=== PATIENT | male | born 1940 | race Caucasian/White ===

== ENCOUNTER 2018-06-02 08:56 | Day surgery (SDC) | payer MEDICARE, OTHER, SELFPAY ==
[2018-06-02 09:29] VITALS: BP 143/70; PULSE 56; RESP 18; TEMP 36.7; O2SAT 96; BMI 34.2
[2018-06-02 09:40] LABS: Bedside Glucose 88 mg/dL (70-110)
--- NOTE | 2018-06-02 10:18 | PCM.OPRPT ---
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 z86.010 personal history of colonic polyps Post-Operative Diagnosis: Same Surgery/Procedure Performed:: 1. Esophagogastroduodenoscopy with biopsy. 2. Colonoscopy with snare polypectomy ?2 Type of Anesthesia:: MAC Description of Procedure: Patient was brought into the endoscopy suite. Placed in the supine position. Back of his throat was sprayed with Cetacaine spray. Bite-block was placed. He was placed in the left lateral decubitus position. Graded anesthesia was given Olympus scope was inserted in the back of the oropharynx and directed down through the esophagus into the stomach and into the duodenum without difficulty operative findings: 1. Duodenum: Normal appearance no mass lesions. 2. Stomach: Some linear gastritis was identified in the prepyloric area the pylorus itself was patent and no signs of mass lesions and no signs of ulcerations. Retroflexion did not show any signs of a hiatal hernia. No polyps were identified in the stomach. 3. Esophagus: There was a small area of the distal esophagus at the ZE line that looked like healing Brooks's esophagitis I did biopsies of this ?2. The rest of the distal esophagus all look normal and was widely patent. Colonoscope was inserted into the rectum. It was directed through the rectum, sigmoid colon, descending colon, transverse colon, ascending colon, to the cecum without difficulty operative findings: 1. Cecum: Normal appearance no mass lesions normal ileocecal valve. 2. Ascending colon: Normal in appearance. There were 2 small polyps which were removed with snare cautery technique and brought back through the channel of the scope without difficulty 3. Transverse colon: Normal appearance no mass lesions 4. Descending colon: Normal in appearance no mass lesions. 5. Sigmoid colon: Normal appearance no mass lesions. Multiple colonic diverticuli were identified. His bowel prep was rather poor through this area 6. Rectum: Normal appearance no mass lesions retroflexion did show some internal hemorrhoids. Rectal exam revealed no masses within the anus. Patient will need another colonoscopy in 10 years - Admit VTE Documentation VTE Present on Admission: No VTE Mechan Device Prophylaxis: None VTE Pharm Prophylaxis ordered?: No Reason prophylaxis not ordered:: Treatment Not Indicated
--- NOTE | 2018-06-02 10:30 | EGD_PTH ---
PATIENT: GHAZAL BOSS LOC: EN U#:[id number] AGE/SX: 77/M ROOM: RE06/02/[address]: Dr. Jesus Jones MD : 1940 BED: DIS: 06/02/2018 SPEC #: [id number] RECD: 06/02/18 13:28 STATUS: SANIYA CARMELITA #: [id number] JORDANA: 06/02/18 10:[address]: Jesus Jones DEPT: SURGICAL PATHOLOGY RECD BY: Sumeet Sweet ENTERED: 06/02/18 14:11 SP TYPE: EGD BIOPSY OT DR: Dr. Anthony Luo MD Tissues: A - Esophagus, NOS B - Ascending colon Procedures: Special Stain Group II Surgery Specimen Level IV Alcian Blue/PAS (control) HEADER OPERATION: [place] [place] DIAGNOSIS: Brooks?s esophagus, personal history of colon polyps TISSUE SUBMITTED: A. Biopsy distal esophagus, B. Polyps ascending colon MICROSCOPIC DIAGNOSIS A. 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 Negative for dysplasia. See comment. B. Polyp ascending colon, biopsy: Fragments of tubulovillous adenoma. ESTHER:najma 06/03/18 COMMENT A. Alcian blue/PAS stain with matched control is used in the evaluation of the specimen. MICROSCOPIC DESCRIPTION Slides are reviewed. GROSS DESCRIPTION A - Received in fixative is one container labeled with the patient's name and designated biopsy distal esophagus. The specimen consists of multiple irregular fragments of light mcdonald soft tissue that in aggregate measure 0.6 x 0.3 x 0.1 cm. The specimen is totally submitted in one cassette. B - Received in fixative is one container labeled with the patient's name and designated polyp ascending colon. The specimen consists of multiple irregular fragments of light mcdonald soft tissue mixed with fecal material that in aggregate measure 2 x 0.3 x 0.1 cm. The specimen is totally submitted in one cassette. / ESTHER:najma 06/02/18 TC:1 CPT: 92367 x2, 94032
[2018-06-02 11:00] VITALS: BP 120/69; BP 143/70; PULSE 54; RESP 12; TEMP 36.2; O2SAT 95
[2018-06-02 11:05] VITALS: BP 139/70; BP 143/70; PULSE 55; RESP 14; O2SAT 96
[2018-06-02 11:10] VITALS: BP 139/82; BP 143/70; PULSE 53; RESP 14; O2SAT 96
[2018-06-02 11:15] VITALS: BP 135/68; BP 143/70; PULSE 51; RESP 16; TEMP 36.2; O2SAT 98
[2018-06-02 11:50] VITALS: BP 143/70
== END 2018-06-02 11:50 | disposition home or self-care (01) ==
LOC: EN 08:56 → AC 08:57
PROVIDERS: Family Provider Family Medicine; PCP Family Medicine; Visit Provider Surgery
PROC: 0DJD8ZZ Inspection of Lower Intestinal Tract, Via Natural or Artificial Opening Endoscopic (ICD-10-PCS; CPT 45378; principal; 2018-06-02 10:25)
DX: K22.70 Barrett's esophagus without dysplasia (principal); K29.70 Gastritis, unspecified, without bleeding; Z87.19 Personal history of other diseases of the digestive system; D12.2 Benign neoplasm of ascending colon; K57.30 Diverticulosis of large intestine without perforation or abscess without bleeding; K64.8 Other hemorrhoids; Z86.010 Personal history of colon polyps; E11.9 Type 2 diabetes mellitus without complications; K21.9 Gastro-esophageal reflux disease without esophagitis; M19.90 Unspecified osteoarthritis, unspecified site; I10 Essential (primary) hypertension; I48.91 Unspecified atrial fibrillation; E78.00 Pure hypercholesterolemia, unspecified; Z79.82 Long term (current) use of aspirin; Z79.84 Long term (current) use of oral hypoglycemic drugs; Z79.899 Other long term (current) drug therapy; Z87.891 Personal history of nicotine dependence
CPT/HCPCS: 43239; 45385; 82962; 88305; 88313; J7120

== ENCOUNTER → 2019-04-01 | Outpatient (CLI) | payer MEDICARE, OTHER, SELFPAY ==
[2019-04-01 07:54] VITALS: BMI 34.7
== END | disposition home or self-care (01) ==
LOC: LABSPEC 04-04 14:43
PROVIDERS: Family Provider Family Medicine; PCP Family Medicine; Referring Provider Surgery; Visit Provider Surgery
DX: R19.7 Diarrhea, unspecified (principal)
CPT/HCPCS: 82274; 83630; 87177; 87209; 87493

== ENCOUNTER 2019-04-14 06:20 | Day surgery (SDC) | payer MEDICARE, OTHER, SELFPAY ==
[2019-04-01 07:54] VITALS: BMI 34.7
[2019-04-14] VITALS (7 sets, daily range): BP systolic 88–124; BP diastolic 55–62; PULSE 47–54; RESP 16–18; TEMP 36.3–36.6; O2SAT 93–96; BMI 33.7
[2019-04-14 07:16] LABS: Bedside Glucose 135 mg/dL (70-110)
--- NOTE | 2019-04-14 07:24 | HP.PCM_ITS ---
History and Physical Date of Admission: 04/14/19 [facility] 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 Is patient in pain?: No Allergies niacin Allergy (Mild, Verified 04/12/19 10:22) hives ciprofloxacin [From Cipro] Adverse Reaction (Mild, Verified 04/12/19 10:22) gi upset Medications aspirin 81 mg tablet,delayed release 81 mg PO QDAY 05/21/18 [History Confirmed 04/12/19] lisinopril 20 mg tablet 20 mg PO QDAY 05/21/18 [History Confirmed 04/12/19] metformin 1,000 mg tablet 1,000 mg PO BID 05/21/18 [History Confirmed 04/12/19] metoprolol tartrate 25 mg tablet 25 mg PO BID 05/21/18 [History Confirmed 04/12/19] simvastatin 40 mg tablet 40 mg PO DAILY 05/21/18 [History Confirmed 04/12/19] Ascorbic Acid [Vitamin C] 500 mg PO DAILY@0800 05/31/18 [History Confirmed 04/12/19] Cholecalciferol (Vitamin D3) [Vitamin D3] 1,000 unit PO DAILY 05/31/18 [History Confirmed 04/12/19] Cinnamon Bark [Cinnamon] 500 mg PO DAILY 05/31/18 [History Confirmed 04/12/19] Garlic 1,000 mg PO DAILY 05/31/18 [History Confirmed 04/12/19] Niacin [Slo-Niacin] 250 mg PO BID 05/31/18 [History Confirmed 04/12/19] [place]-3 Fatty Acids/Fish Oil [[place] 3 1,000 mg Softgel] 3 ea PO BID 05/31/18 [History Confirmed 04/12/19] Yeast,Dried (S. Cerevisiae) [Jolley's Yeast] 1,000 mg PO DAILY 05/31/18 [History Confirmed 04/12/19] Zinc 50 mg PO DAILY 05/31/18 [History Confirmed 04/12/19] Insulin NPH Human Isophane [Novolin N] 40 unit SQ BID 06/02/18 [History Confirmed 04/12/19] pantoprazole 20 mg tablet,delayed release 20 mg PO QDAY #90 tab 06/23/18 [Rx Confirmed 04/12/19] Insulin Regular, Human [Novolin R] 12 unit SUBCUT BID 04/12/19 [History Confirmed 04/12/19] [facility] Medical History Barretts esophagus (Acute) Chronic back pain (Acute) Diabetes (Acute) Diarrhea (Acute) GERD (gastroesophageal reflux disease) (Acute) Osteoarthritis (Acute) Personal history of colonic polyps (Acute) HTN (hypertension) (Chronic) Surgical History History of esophagogastroduodenoscopy (EGD) (Acute) Previous back surgery (Acute) S/P cardiac catheterization (Acute) S/P colonoscopy (Acute) S/P rotator cuff repair (Acute) Status post knee surgery (Acute) Family History Mother Diabetes Heart disease Sister CVA (cerebral vascular accident) Brother Heart disease Myocardial infarction Son Heart disease Myocardial infarction Social History Smoking Status: Former smoker how long ago did patient quit smokin HPI HPI HPI: GHAZAL BOSS, is a 78 M who presents to the office today for HPI HPI Surgical H&P: Yes HPI: GHAZAL BOSS, is a 78 M who presents to the office today for diarrhea with: Testing. Patient states that he has had daily diarrhea nothing is working he is tried Imodium adding fiber he has not had any new medications. He states that he is staying well-hydrated his urine is lightly yellow. He has a history of a tubulovillous adenoma being removed and is not due for his repeat colonoscopy until 2018. Patient had a celiac screening done which final interpretation showed no serologic evidence of celiac disease. Patient has tried to avoid milk and breads as well still not noticing any real change in his stool habits. He has not had any stool cultures are C. difficile investigations as of yet. Patient had stool WBCs which were negative for C. difficile which was negative ova and parasite exams were also all negative. He was also fecal occult negative. At this point I think the best thing to do is repeat his colonoscopy early and do random colon biopsies Exam Const General: no acute distress, well developed, well hydrated Orientation: oriented to person, oriented to place, oriented to time [facility] Head: normocephalic, atraumatic Ears: external ears normal Mouth: moist mucous membranes Eyes Sclera: sclerae normal Pupils: normal by confrontation Neck Neck: no lymphadenopathy noted Neck mass: No Thyroid: thyroid normal, symmetrical Chest Chest palpation & inspection: normal inspection of the chest Resp Effort & Inspection: normal respiratory effort Auscultation: clear to auscultation bilaterally Percussion: percussion normal Cardio Rate: regular rate Rhythm: regular rhythm GI Palpation: soft, no hepatosplenomegaly, no masses, nontender Rectal Exam: other Other: Rectal exam deferred. Extrem General: normal to inspection, no clubbing, cyanosis or edema Assessment & Plan Problems 1. Diarrhea, unspecified type R19.7 Plan I have discussed the above with the patient. I have offered the patient colonoscopy for evaluation. I have explained the risks/benefits of the procedure and described the procedure. I have discussed the risks with the patient, including but not limited to: infection, bleeding, perforation of the GI tract requiring emergency surgery, inability to complete the procedure, injury to any internal organs, complications of anesthesia, etc. - the patient understands and agrees to proceed. I have answered all the patient's questions to the patient's satisfaction and the patient has no further questions. The patient has been given instructions for the colon cleansing preparation. Orders Orders: Colonoscopy 04/08/19 R19.7 Coding Level of Care Code Off vis,est,level 2 Diagnoses Diarrhea, unspecified type R19.7 ??Diarrhea type: unspecified type 04/12/19 1136 <Electronically signed by Jesus Jones MD> Date Jesus Jones MD Cosigner Signature: Date (if applicable) CC: ~ I have re-examined the patient. There are no clinical changes since date of exam.
--- NOTE | 2019-04-14 07:30 | COLBX_PTH ---
PATIENT: GHAZAL BOSS LOC: EN U#:[id number] AGE/SX: 78/M ROOM: RE04/14/[address]: Dr. Jesus Jones MD : 1940 BED: DIS: 04/14/2019 SPEC #: [id number] RECD: 04/14/19 08:10 STATUS: SANIYA CARMELITA #: [id number] JORDANA: 04/14/19 07:[address]: Jesus Jones DEPT: SURGICAL PATHOLOGY RECD BY: Lambert Bailey ENTERED: 04/14/19 11:03 SP TYPE: COLON BX JOE DR: Dr. Anthony Luo MD Tissues: A - COLON BIOPSY B - Descending colon Procedures: Trichrome (control) Special Stain Group II Surgery Specimen Level IV HEADER OPERATION: Colonoscopy PRE-OP DIAGNOSIS: Diarrhea TISSUE SUBMITTED: A - Random colon biopsies, B - Biopsy of descending colon polyp MICROSCOPIC DIAGNOSIS A. Colon, random biopsy: No pathologic change. See comment. B. Descending colon polyp, biopsy: Fragments of tubular adenoma. AM:najma 04/15/19 COMMENT A. Trichrome stain with matched control does not reveal a thickened basal plate. MICROSCOPIC DESCRIPTION Slides are reviewed. GROSS DESCRIPTION A - Received in fixative is one container labeled with the patient's name and designated random colon biopsy. The specimen consists of multiple irregular fragments of light mcdonald soft tissue that in aggregate measure 2 x 1 x 0.1 cm. The specimen is totally submitted in one cassette. B - Received in fixative is one container labeled with the patient's name and designated biopsy of descending colon polyp. The specimen consists of multiple irregular fragments of light mcdonald soft tissue that in aggregate measure 1 x 0.5 x 0.1 cm. The specimen is totally submitted in one cassette. / SJ:najma 04/14/19 TC:5 CPT: 33641 x2, 48188
--- NOTE | 2019-04-14 07:56 | OP.ENDO_ITS ---
04/14/2019 Anthony Luo MD Re : Colonoscopy procedure for Juan Phillips Dear Dr. Luo This procedure was performed on April. My impressions and recommendations are as follows: Impressions : - Preparation of the colon was poor. Patient had a remarkable amount of retained stool throughout the descending and sigmoid colon. With his chronic history of diarrhea I really was not expecting to find this. - Diverticulosis in the entire examined colon. - One 5 mm polyp in the descending colon, removed with a jumbo cold forceps. Resected and retrieved. - The examination was otherwise normal. Rectal exam revealed no masses within the anus itself and no masses in the distal rectum. - Multiple biopsies were obtained in the entire colon. Recommendations : - Discharge patient to home. - Resume previous diet. - Continue present medications. - Await pathology results. - Repeat colonoscopy in 3 years for surveillance. - Return to my office in 1 week. My findings are described in the full procedure note, which is enclosed. If I can be of further assistance, please feel free to contact me at Doctor phone number(s): , Fax: [phone], Work: . Sincerely, MD Jesus Rich MD 04/14/2019 7:55:28 AM This report has been signed electronically.
== END 2019-04-14 08:42 | disposition home or self-care (01) ==
LOC: EN 06:20 → AC 06:22
PROVIDERS: Family Provider Family Medicine; PCP Family Medicine; Referring Provider Family Medicine; Visit Provider Surgery
PROC: 0DJD8ZZ Inspection of Lower Intestinal Tract, Via Natural or Artificial Opening Endoscopic (ICD-10-PCS; CPT 45378; principal; 2019-04-14 07:25)
DX: D12.4 Benign neoplasm of descending colon (principal); K57.30 Diverticulosis of large intestine without perforation or abscess without bleeding; M54.9 Dorsalgia, unspecified; G89.29 Other chronic pain; E11.9 Type 2 diabetes mellitus without complications; K21.9 Gastro-esophageal reflux disease without esophagitis; M19.90 Unspecified osteoarthritis, unspecified site; I10 Essential (primary) hypertension; I48.91 Unspecified atrial fibrillation; Z86.010 Personal history of colon polyps; Z87.19 Personal history of other diseases of the digestive system; Z79.82 Long term (current) use of aspirin; Z79.4 Long term (current) use of insulin; Z79.84 Long term (current) use of oral hypoglycemic drugs; Z79.899 Other long term (current) drug therapy; Z87.891 Personal history of nicotine dependence
CPT/HCPCS: 45380; 82962; 88305; 88313; J7120; J1610

== ENCOUNTER 2020-06-06 06:05 | Day surgery (SDC) | payer MEDICARE, OTHER, SELFPAY ==
--- NOTE | 2020-05-03 01:06 | HP_ITS ---
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 Is patient in pain?: No Allergies niacin Allergy (Mild, Verified 05/03/20 13:01) hives ciprofloxacin [From Cipro] Adverse Reaction (Mild, Verified 05/03/20 13:01) gi upset Medications aspirin 81 mg tablet,delayed release 81 mg PO QDAY 05/21/18 [History Confirmed 05/03/20] lisinopril 20 mg tablet 20 mg PO QDAY 05/21/18 [History Confirmed 05/03/20] metformin 1,000 mg tablet 1,000 mg PO BID 05/21/18 [History Confirmed 05/03/20] metoprolol tartrate 25 mg tablet 25 mg PO BID 05/21/18 [History Confirmed 05/03/20] simvastatin 40 mg tablet 40 mg PO DAILY 05/21/18 [History Confirmed 05/03/20] Ascorbic Acid [Vitamin C] 500 mg PO DAILY@0800 05/31/18 [History Confirmed 05/03/20] Cholecalciferol (Vitamin D3) [Vitamin D3] 1,000 unit PO DAILY 05/31/18 [History Confirmed 05/03/20] Cinnamon Bark [Cinnamon] 500 mg PO DAILY 05/31/18 [History Confirmed 05/03/20] Garlic 1,000 mg PO DAILY 05/31/18 [History Confirmed 05/03/20] Niacin [Slo-Niacin] 250 mg PO BID 05/31/18 [History Confirmed 05/03/20] [place]-3 Fatty Acids/Fish Oil [[place] 3 1,000 mg Softgel] 3 ea PO BID 05/31/18 [History Confirmed 05/03/20] Zinc 50 mg PO DAILY 05/31/18 [History Confirmed 05/03/20] pantoprazole 20 mg tablet,delayed release 20 mg PO QDAY #90 tab 06/23/18 [Rx Confirmed 05/03/20] Insulin Regular, Human [Novolin R] 12 unit SUBCUT BID 04/12/19 [History Confirmed 05/03/20] insulin NPH isoph U-100 human 100 unit/mL subcutaneous suspension 50 unit SC BID ml 05/03/20 [History Confirmed 05/03/20] [facility] Medical History Diarrhea (Acute) Personal history of colonic polyps (Acute) Diabetes (Acute) Chronic back pain (Acute) Osteoarthritis (Acute) Barretts esophagus (Acute) GERD (gastroesophageal reflux disease) (Acute) HTN (hypertension) (Chronic) Surgical History S/P cardiac catheterization (Acute) S/P rotator cuff repair (Acute) Status post knee surgery (Acute) Previous back surgery (Acute) S/P colonoscopy (Acute) History of esophagogastroduodenoscopy (EGD) (Acute) Family History Mother Diabetes Heart disease Sister CVA (cerebral vascular accident) Brother Heart disease Myocardial infarction Son Heart disease Myocardial infarction Social History (Updated 05/03/20 @ 13:[address] Jesus Jones MD) Smoking Status: Former smoker how long ago did patient quit smokin HPI HPI HPI: GHAZAL BOSS, is a 79 M who presents to the office today for HPI HPI Surgical H&P: Yes HPI: GHAZAL BOSS, is a 79 M who presents to the office today for Evaluation for upper endoscopy. Patient is status post an upper and lower endoscopy on 06/02/2018. Distal esophagus biopsies showed goblet cell metaplasia consistent with Brooks's esophagitis. He has been on an every 2 years upper endoscopy and I believe this should still be continued. ROS General General: No weight change, appetite, fatigue, colon cancer, breast cancer or weakness HEENT HEENT: No difficulty swallowing, eye injury, eye surgery, swollen glands or hoarseness Endo Endocrine: No thyroid disease, diabetes mellitus, thyroid cancer, Hair loss, heat intolerance or cold intolerance Skin Skin: No rash or changing moles Breast Breast: No left breast lump, right breast lump, nipple discharge, breast pain, abnormal mammogram, abnormal US or breast enlargement Musc Musculoskeletal: No back problems, arthritis, rheumatoid arthritis, gout or joint pain Cardio Cardiovascular: No murmur, pacemaker, heart disease, atrial fibrillation, high blood pressure, heart attack, heart stent, palpitations, shortness of breat with exertion or chest pain Psych Psychiatric: No depression, anxiety or hearing voices Resp Respiratory: No shortness of breath, No sleep apnea, No cough, No COPD, No asthma, No emphysema, No wheezing Gastro Gastrointestinal: No abdominal pain, No nausea or vomiting, Yes diarrhea, No constipation, No blood in stool, Yes acid reflux, No hemorrhoids, No ulcers, No gallbladder problem, No black,tarry stools Delroy Hematologic: Yes blood thinners, No blood disorders, No bleeding, No anemia, No blood clots Neuro Neurologic: No weakness Exam Const General: no acute distress, well developed, well hydrated Orientation: oriented to person, oriented to place, oriented to time [facility] Head: normocephalic, atraumatic Ears: external ears normal Mouth: moist mucous membranes Eyes Sclera: sclerae normal Pupils: normal by confrontation Neck Neck: no lymphadenopathy noted Neck mass: No Thyroid: thyroid normal, symmetrical Chest Chest palpation & inspection: normal inspection of the chest Breast Palpation: No nipple discharge Resp Effort & Inspection: normal respiratory effort Auscultation: clear to auscultation bilaterally Percussion: percussion normal Cardio Rate: regular rate Rhythm: regular rhythm Heart Sounds: no murmurs GI Inspection: obesity Palpation: soft, no hepatosplenomegaly, no masses, nontender Rectal Exam: other Other: Rectal exam deferred. Extrem General: normal to inspection, no clubbing, cyanosis or edema Assessment & Plan Problems 1. History of Brooks's esophagus Z87.19 Plan I have discussed the above with the patient. I have offered the patient esophagogastroduodenoscopy for evaluation. I have explained the risks/benefits of the procedure and described the procedure. I have discussed the risks with the patient, including but not limited to: infection, bleeding, perforation of the GI tract requiring emergency surgery, inability to complete the procedure, injury to any internal organs, complications of anesthesia, etc. - the patient understands and agrees to proceed. I have answered all the patient's questions to the patient's satisfaction and the patient has no further questions. The patient has been given instructions for the colon cleansing preparation. We will do biopsies of his distal esophagus. Coding Level of Care Code Off vis,est,level 3 Diagnoses History of Brooks's esophagus Z87.19 COVID (Procedure Consent) Procedure Criteria Procedure Criteria: Yes Elective The surgeon/proceduralist and patient have discussed in detail the risk of exposure to and/or potential harm posed by the COVID-19 virus with having a surgery/procedure at this time versus the risk of? delaying the surgery/procedure. It is not possible to know either the risk of delaying the surgery or procedure or chance of getting an infection with perfect accuracy, but a joint decision was made between the patient and the surgeon/proceduralist ?to proceed at this time with the scheduled surgery/procedure as indicated on the consent form. 05/03/20 1307 <Electronically signed by Jesus gutierrez MD> Date _ Jesus Jones MD I have re-examined the patient. There are no clinical changes since date of exam.
[2020-05-03 13:02] VITALS: BMI 33.7
[2020-06-06] VITALS (7 sets, daily range): BP systolic 101–139; BP diastolic 63–72; PULSE 52–61; RESP 16–18; TEMP 36.2–36.6; O2SAT 63–100; BMI 35.6
--- NOTE | 2020-06-06 | GASB_PTH ---
PATIENT: GHAZAL BOSS LOC: EN U#:[id number] AGE/SX: 79/M ROOM: RE06/06/[address]: Dr. Jesus Jones MD : 1940 BED: DIS: 06/06/2020 SPEC #: [id number] RECD: 06/06/20 10:59 STATUS: SANIYA CARMELITA #: [id number] JORDANA: 06/06/20 00:[address]: Jesus Jones DEPT: SURGICAL PATHOLOGY RECD BY: Dylon Cohen ENTERED: 06/06/20 11:00 SP TYPE: Gastric Bx OTHR DR: Dr. Anthony Luo MD Tissues: A - Gastric mucous membrane B - Esophagus, NOS Procedures: Surgery Specimen Level IV HEADER OPERATION[place] [place] DIAGNOSIS: History Brooks's esophagus TISSUE SUBMITTED: A - Antrum biopsy for histo and H. pylori, B - Distal esophagus biopsy MICROSCOPIC DIAGNOSIS A. Gastric antrum, biopsy: Benign gastric mucosa. See comment. B. Distal esophagus, biopsy: Fragments of benign squamous mucosa. No evidence of inflammation. AM:najma 06/07/20 COMMENT A. The results of immunohistochemistry for Helicobacter pylori will be reported separately ([id number]). MICROSCOPIC DESCRIPTION Slides are reviewed. GROSS DESCRIPTION A - Received in fixative is one container labeled with the patient's name and designated antrum biopsy. The specimen consists of one irregular fragment of light mcdonald soft tissue that measures 0.5 x 0.2 x 0.1 cm. The specimen is totally submitted in one cassette. B - Received in fixative is one container labeled with the patient's name and designated distal esophagus biopsy. The specimen consists of multiple irregular fragments of light mcdonald soft tissue that in aggregate measure 1 x 0.2 x 0.1 cm. The specimen is totally submitted in one cassette. / SJ:najma 06/06/20 TC:5 CPT: 90391 x2
[2020-06-06] MEDS: Lactated Ringers 1,000 ML 100 ML IV (06:39)
[2020-06-06 06:45] LABS: Bedside Glucose 87 mg/dL (70-110)
--- NOTE | 2020-06-06 07:30 | IMM_PTH ---
PATIENT: GHAZAL BOSS LOC: EN U#:[id number] AGE/SX: 79/M ROOM: RE06/06/[address]: Dr. Jesus Jones MD : 1940 BED: DIS: 06/06/2020 SPEC #: [id number] RECD: 06/06/20 12:47 STATUS: SOUGabriel REQ #: [id number] JORDANA: 06/06/20 07:[address]: Jesus Jones DEPT: IMMUNOHISTOCHEMISTRY RECD BY: Maribeth Robles ENTERED: 06/06/20 12:48 SP TYPE: IMMUNO OTHR DR: Dr. Anthony Luo MD Tissues: A - Stomach, NOS Procedures: H Pylori (initial) PHYSICIAN & INSTITUTION [place] [address] SPECIMEN INFORMATION: Tissue Source: A - Antrum biopsy Clinical Info: History Brooks's esophagus Specimen Number: [id number] CPT code: 77979 METHODOLOGY: Deparaffinized sections of prefer/formalin-fixed tissue or PAP/DQ stained slides are incubated with monoclonal/polyclonal antibodies/oligonucleotide probes. Localization is made via biotin free immunoperoxidase method. Appropriate controls are performed and reacted as expected. Results on target cell population are indicated in the following table: RESULTS: ANTIBODY / CLONE RESULT Block A H Pylori (polyclonal) negative These tests were developed and their performance characteristics determined by [facility]. They may not have been cleared or approved by the U.S. Food and Drug Administration. The FDA has determined that such clearance or approval is not necessary. INTERPRETATION: A. Antrum, biopsy: Negative for Helicobacter pylori organisms. AM:najma 06/08/20
--- NOTE | 2020-06-06 07:46 | OP.EGD_ITS ---
Patient Name: Juan Phillips Procedure Date: 06/06/2020 7:11 AM Date of : 1940 Age: 79 Procedure: Upper GI endoscopy Indications: Brooks's esophagus Providers: Jesus Jones MD Referring MD: Anthony Luo MD Medicines: See the Anesthesia note for documentation of the administered medications Patient Profile: This is a 79 year old male. Refer to note in patient chart for documentation of history and physical. Complications: No immediate complications. Procedure: Pre-Anesthesia Assessment: - Prior to the procedure, a History and Physical was performed, and patient medications and allergies were reviewed. The patient's tolerance of previous anesthesia was also reviewed. The risks and benefits of the procedure and the sedation options and risks were discussed with the patient. All questions were answered, and informed consent was obtained. Prior Anticoagulants: The patient has taken aspirin, last dose was 7 days prior to procedure. ASA Grade Assessment: III - A patient with severe systemic disease. After reviewing the risks and benefits, the patient was deemed in satisfactory condition to undergo the procedure. After obtaining informed consent, the endoscope was passed under direct vision. Throughout the procedure, the patient's blood pressure, pulse, and oxygen saturations were monitored continuously. The gastroscope was introduced through the mouth, and advanced to the second part of duodenum. The upper GI endoscopy was accomplished without difficulty. The patient tolerated the procedure well. Scope In: 7:38:42 AM Scope Out: 7:42:28 AM Total Procedure Duration Time 0 hours 3 minutes 46 seconds Findings: The esophagus and gastroesophageal junction were examined with white light from a forward view and retroflexed position. There was no visual evidence of Brooks's esophagus. Biopsies were taken with a cold forceps for histology. Diffuse mildly erythematous mucosa without bleeding was found in the prepyloric region of the stomach. Biopsies were taken with a cold forceps for Helicobacter pylori testing. Diffuse mildly erythematous mucosa without active bleeding and with no stigmata of bleeding was found in the duodenal bulb. No biopsies or other specimens were collected for this exam. Impression: - There is no endoscopic evidence of Brooks's esophagus. Biopsied. - Erythematous mucosa in the prepyloric region of the stomach. Biopsied. - Erythematous duodenopathy. No specimens collected. Recommendation: - Discharge patient to home. - Resume previous diet. - Continue present medications. - Await pathology results. - Repeat upper endoscopy in 5 years for surveillance. - Return to my office in 1 week. Procedure Code(s): --- Professional --- 34180, Esophagogastroduodenoscopy, flexible, transoral; with biopsy, single or multiple Diagnosis Code(s): --- Professional --- K22.70, Brooks's esophagus without dysplasia K31.89, Other diseases of stomach and duodenum CPT copyright 2017 [employer]. All rights reserved. The codes documented in this report are preliminary and upon oncology nurse review may be revised to meet current compliance requirements. MD Jesus Rich MD 06/06/2020 7:46:22 AM This report has been signed electronically. Number of Addenda: 0 Note Initiated On: 06/06/2020 7:11 AM
--- NOTE | 2020-06-06 07:47 | OP.CCLET_ITS ---
06/06/2020 Anthony Luo MD Re : Upper GI endoscopy procedure for Juan Phillips Dear Dr. Luo This procedure was performed on Saturday, June 06, 2020. My impressions and recommendations are as follows: Impressions : - There is no endoscopic evidence of Brooks's esophagus. Biopsied. - Erythematous mucosa in the prepyloric region of the stomach. Biopsied. - Erythematous duodenopathy. No specimens collected. Recommendations : - Discharge patient to home. - Resume previous diet. - Continue present medications. - Await pathology results. - Repeat upper endoscopy in 5 years for surveillance. - Return to my office in 1 week. My findings are described in the full procedure note, which is enclosed. If I can be of further assistance, please feel free to contact me at Doctor phone number(s): , Fax: [phone], Work: . Sincerely, MD Jesus Rich MD 06/06/2020 7:46:22 AM This report has been signed electronically.
== END 2020-06-06 08:23 | disposition home or self-care (01) ==
LOC: EN 06:06 → AC 06:06
PROVIDERS: Anesthesiology; PCP Family Medicine; Referring Provider Family Medicine; Visit Provider Surgery
PROC: 0DJ08ZZ Inspection of Upper Intestinal Tract, Via Natural or Artificial Opening Endoscopic (ICD-10-PCS; CPT 43235; principal; 2020-06-06 07:25)
DX: K22.70 Barrett's esophagus without dysplasia (principal); K31.89 Other diseases of stomach and duodenum; Z87.19 Personal history of other diseases of the digestive system; Z86.010 Personal history of colon polyps; Z11.59 Encounter for screening for other viral diseases; I10 Essential (primary) hypertension; E11.9 Type 2 diabetes mellitus without complications; M19.90 Unspecified osteoarthritis, unspecified site; K21.9 Gastro-esophageal reflux disease without esophagitis; E78.00 Pure hypercholesterolemia, unspecified; Z79.4 Long term (current) use of insulin; Z79.82 Long term (current) use of aspirin; Z79.84 Long term (current) use of oral hypoglycemic drugs; Z79.899 Other long term (current) drug therapy; Z87.891 Personal history of nicotine dependence
CPT/HCPCS: 43239; 82962; 87635; 88305; 88342; 94799; J7120; U0003